=== PATIENT | male | born 1955 | race Caucasian/White ===

== ENCOUNTER 2017-03-16 12:17 | Emergency (ER) | payer OTHER ==
--- NOTE | 2017-03-16 12:35 | EDPHY ---
H & P Stated Complaint: c/o general Abd pain - states he has Diverticulitis- last episod 1month ago HPI/ROS: Chief Complaint: Abdominal pain HPI: 61-year-old male has been having low suprapubic abdominal pain particularly when he has a bowel movement passes gas for the last 2 weeks. Patient states that this is consistent with prior episodes of diverticulitis. No nausea, vomiting or diarrhea. No fevers or chills. No chest pain shortness of breath. Has had some increasing urination and some burning with urination. Patient states he has gets have some very mild 1/10 dull pain when he is not having a bowel movement. Pain is not in his rectum but is more in the suprapubic area. ROS: 10 point Review of Systems is negative except as noted in the HPI. PMH: COPD, diverticulitis Social History: Positive smoking, occasional alcohol, no recreational drug use Family History: non-contributory Physical Exam: Gen: Awake, Alert, No Distress HEENT: Nose: no rhinorrhea Eyes: PERRLA, EOMI Mouth: Moist mucosa Neck: Supple, no JVD Chest: nontender, lungs clear to auscultation Heart: S1, S2 normal, no murmur Abd: Soft, very mild left lower quadrant and suprapubic tenderness to palpation , no guarding Back: no CVA tenderness, no midline tenderness Ext: no edema, non-tender Skin: no rash Neuro: CN II-XII intact, Sensation grossly intact, Strength 5/5 in bilateral upper and lower extremities - Personal History Current Tetanus Diphtheria and Acellular Pertussis (TDAP): Yes - Medical/Surgical History Other PMH: GB/Diverticulitis/TA/ back surg/COPD - Social History Smoking Status: Current every day smoker Constitutional: Initial Vital Signs Temperature (C) 37.2 C 03/16/17 12:23 Heart Rate 87 03/16/17 12:23 Respiratory Rate 18 03/16/17 12:23 Blood Pressure 134/88 H 03/16/17 12:23 O2 Sat (%) 93 03/16/17 12:23 O2 Delivery Mode Room Air Allergies/Adverse Reactions: Penicillins Allergy (Verified 03/16/17 12:22) Home Medications: Medication Instructions Recorded Atrdarline Rubio (*) 03/16/17 Ciprofloxacin [Cipro] 500 mg PO BID #14 tab 03/16/17 Combivent Respimat Inhal [place](*) 03/16/17 Medical Decision Making ED Course/Re-evaluation: Urinalysis is negative for UTI. Symptoms are certainly consistent with early mild diverticulitis. Patient has had similar in the past. Will start him on oral antibiotics and have him follow up with primary care physician in 3-4 days for re-evaluation. - Data Points Laboratory Results: 03/16/17 12:50 Urine Color YELLOW Urine Appearance HAZY Urine pH 5.5 (5.0-7.5) Ur Specific [place] 1.020 (1.002-1.030) Urine Protein NEGATIVE (NEGATIVE) Urine Ketones 1+ H (NEGATIVE) Urine Blood NEGATIVE (NEGATIVE) Urine Nitrate NEGATIVE (NEGATIVE) Urine Bilirubin NEGATIVE (NEGATIVE) Urine Urobilinogen 2.0 EU H EU (0.2-1.0) Ur Leukocyte Esterase NEGATIVE (NEGATIVE) Urine Glucose NEGATIVE (NEGATIVE) Departure - Departure Disposition: Home, Routine, Self-Care Clinical Impression: Diverticulitis Condition: Good Instructions: Diverticulitis (ED) Additional Instructions: Take your full course of antibiotics. Follow up with primary care physician in 3-4 days for re-evaluation. Return to the emergency depart for increasing pain, nausea, vomiting, fevers, chills, or any other concerns. Referrals: NONE *PRIMARY CARE P,. [Primary Care Provider] - As per Instructions Prescriptions: Ciprofloxacin [Cipro] 500 mg PO BID #14 tab
[2017-03-16 12:49] VITALS: BP 134/88; PULSE 87; RESP 18; TEMP 99; O2SAT 93
[2017-03-16 12:54] LABS: COLOR YELLOW; LEUKOCYTE ESTERASE,URINE NEGATIVE (NEGATIVE); NITRITE,URINE NEGATIVE (NEGATIVE); PH,URINE 5.5 (5.0-7.5)
== END 2017-03-16 13:15 | disposition home or self-care (01) ==
LOC: CED 12:17
DX: K57.90 Diverticulosis of intestine, part unspecified, without perforation or abscess without bleeding (principal); J44.9 Chronic obstructive pulmonary disease, unspecified; F17.200 Nicotine dependence, unspecified, uncomplicated
CPT/HCPCS: 81003-PO